=== PATIENT | male | born 1930 | race Asian ===

== ENCOUNTER 2019-10-09 23:35 | Inpatient (IN) | payer OTHER ==
--- NOTE | 2019-10-10 01:11 | PDOC ---
History of Present Illness - General Chief Complaint: Blood Sugar Problem Stated Complaint: HYPOGLYCEMIA/ASHMA Time Seen by Provider: 10/10/19 01:00 - History of Present Illness Initial Comments: HPI: 89yo F with PMH of DM, HTN, kidney disease, glaucoma presenting with hypoglycemia. Patient's son is at the bedside providing collateral history. Patient was sleeping on the couch and was unarousable. EMS came and found his glucose to be 51. Patient was given an amp of D10. Currently at his baseline. Compliant with glimepiride which he takes every morning. Does not believe he took more than prescribed. Was given a ventolin inhaler about one week ago for shortness of breath. Currently at his neurologic baseline. No fever, chills, or chest pain. PCP: Dr. Rosales ([facility]) ROS: Constitutional: no fever, no chills HEENT: no throat pain, no dysphagia Cardiovascular: no chest pain, no palpitations Respiratory: no cough, +shortness of breath Gastrointestinal: no abdominal pain, no nausea Genitourinary: no dysuria, no hematuria Musculoskeletal: no myalgia, no arthralgia Skin: no rash, no itching Neurologic: no headache, no weakness Psych: no agitation, no anxiety PE: General: Awake, alert, and fully oriented, in no acute distress Head: No signs of trauma Eyes: EOMI, sclera anicteric ENT: Moist mucus membranes Neck: Normal ROM, supple Lungs: Poor air movement with wheezes Cardio: Regular rhythm, S1 and S2 present Abdomen: Soft, nontender. No guarding, no rebound, no masses Extremities: Normal range of motion, Distal pulses present SKIN: Warm, Dry, normal turgor Neurologic: Cranial nerves II through XII intact. Normal speech ED Course/MDM: DDX includes but not limited to metabolic derangement, anemia, brain bleed, intoxication, seizure Labs, EKG, UA Head CT 10/10/19 01:11 EKG: rate 63, QTc 470, sinus, RBBB, no prior EKGs available for comparison CBC WBC 6.6 K/mm3 (4.0-10.0) 10/10/19 02:10 RBC 3.83 M/mm3 (4.00-5.60) L 10/10/19 02:10 Hgb 11.5 GM/dL (11.7-16.9) L 10/10/19 02:10 Hct 34.3 % (35.4-49) L 10/10/19 02:10 MCV 89.6 fl (80-96) 10/10/19 02:10 MCH 30.0 pg (25.7-33.7) 10/10/19 02:10 MCHC 33.5 g/dl (32.0-35.9) 10/10/19 02:10 RDW 13.5 % (11.9-15.9) 10/10/19 02:10 Plt Count 207 K/MM3 (134-434) 10/10/19 02:10 MPV 7.7 fl (7.5-11.1) 10/10/19 02:10 Absolute Neuts (auto) 5.1 K/mm3 (1.5-8.0) 10/10/19 02:10 Neutrophils % 78.0 % (42.8-82.8) 10/10/19 02:10 Lymphocytes % 12.9 % (8-40) 10/10/19 02:10 Monocytes % 3.8 % (3.8-10.2) 10/10/19 02:10 Eosinophils % 4.4 % (0-4.5) 10/10/19 02:10 Basophils % 0.9 % (0-2.0) 10/10/19 02:10 Nucleated RBC % 0 % (0-0) 10/10/19 02:10 No leukocytosis CMP Sodium 130 mmol/L (136-145) L 10/10/19 02:10 Potassium 4.8 mmol/L (3.5-5.1) 10/10/19 02:10 Chloride 100 mmol/L (98-107) 10/10/19 02:10 Carbon Dioxide 20 mmol/L (21-32) L 10/10/19 02:10 Anion Gap 9 MMOL/L (8-16) 10/10/19 02:10 BUN 38.2 mg/dL (7-18) H 10/10/19 02:10 Creatinine 2.2 mg/dL (0.55-1.3) H 10/10/19 02:10 Est GFR (CKD-EPI)AfAm 30.10 10/10/19 02:10 Est GFR (CKD-EPI)NonAf 25.97 10/10/19 02:10 POC Glucometer 125 UNITS (80-120) 10/10/19 00:10 Random Glucose 117 mg/dL (74-106) H 10/10/19 02:10 Calcium 8.1 mg/dL (8.5-10.1) L 10/10/19 02:10 Total Bilirubin 0.4 mg/dL (0.2-1) 10/10/19 02:10 AST 39 U/L (15-37) H 10/10/19 02:10 ALT 38 U/L (13-61) 10/10/19 02:10 Alkaline Phosphatase 107 U/L (45-117) 10/10/19 02:10 Creatine Kinase 208 U/L (26-308) 10/10/19 02:10 Creatine Kinase Index 2.0 % (0.0-5.0) 10/10/19 02:10 CK-MB (CK-2) 4.3 ng/mL (0.5-3.6) H 10/10/19 02:10 Troponin I < 0.02 ng/ml (0.00-0.05) 10/10/19 02:10 Total Protein 6.1 g/dl (6.4-8.2) L 10/10/19 02:10 Albumin 3.5 g/dl (3.4-5.0) 10/10/19 02:10 Electrolytes unremarkable Cr elevated, unknownbaseline Tpn undetctable CT head as read by imaging engineering consultant: "COMPARISON: None. FINDINGS: The ventricular system is midline and nondilated. Mild cortical atrophy is noted. 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 There is no bleed, mass, extra-axial fluid collection or mass effect. No skull fracture or skull lesion is identified. The visualized paranasal sinuses and mastoid air cells are clear other than mucosal thickening in the maxillary sinuses.. IMPRESSION: No evidence of acute pathology" 10/10/19 05:17 Mary Hawley for asthma exacerbation Plan for admission 10/10/19 05:[address] Dial who accepted patient for admission under Dr. Hurt 10/10/19 07:28 Past History - Past Medical History Allergies/Adverse Reactions: Allergies Allergy/AdvReac Type Severity Reaction Status Date / Time No Known Allergies Allergy Verified 10/10/19 02:22 Home Medications: Ambulatory Orders Albuterol Sulfate Inhaler - [Ventolin Hfa Inhaler -] 2 inh PO Q6H 10/10/19 Amlodipine Besylate 10 mg PO DAILY 10/10/19 Atorvastatin Ca [Lipitor] 40 mg PO HS 10/10/19 Celecoxib 200 mg PO BID 10/10/19 Clopidogrel Bisulfate [Plavix -] 75 mg PO DAILY 10/10/19 Glimepiride [Amaryl -] 2 mg PO DAILY 10/10/19 Tamsulosin HCl 0.4 mg PO DAILY 10/10/19 Cardiac Disorders: Yes COPD: Yes Diabetes: Yes HTN: Yes Hypercholesterolemia: Yes - Immunization History Td Vaccination: Yes TDAP Vaccination: Yes Immunization Up to Date: No - Psycho Social/Smoking Cessation Hx Smoking History: Never smoked Have you smoked in the past 12 months: No Information on smoking cessation initiated: No Hx Alcohol Use: Yes (occasional) Drug/Substance Use Hx: No *Physical Exam - Vital Signs Last Vital Signs Temp Pulse Resp BP Pulse Ox 97.5 F L 58 L 20 186/70 H 99 10/10/19 00:22 10/10/19 00:22 10/10/19 00:22 10/10/19 00:22 10/10/19 00:22 ED Treatment Course - LABORATORY CBC & Chemistry Diagram: 10/10/19 02:10 10/10/19 02:10 - ADDITIONAL ORDERS Additional order review: Laboratory Results 10/10/19 00:10 POC Glucometer 125 10/10/19 00:10 POC Glucometer 125 Discharge - Discharge Information Problems reviewed: Yes Clinical Impression/Diagnosis: Hypoglycemia, Unresponsive episode Asthma exacerbation Qualifiers: Asthma severity: mild Asthma persistence: unspecified Qualified Code(s): J45.901 - Unspecified asthma with (acute) exacerbation Condition: Guarded - Admission Yes - Follow up/Referral Referrals: ON STAFF,NOT [Primary Care Provider] - - Patient Discharge Instructions - Post Discharge Activity
--- NOTE | 2019-10-10 01:35 | PDOC ---
Attending Attestation - Resident Resident Name: Beatrice Nair - ED Attending Attestation I have performed the following: I have examined & evaluated the patient, The case was reviewed & discussed with the resident, I agree w/resident's findings & plan - HPI HPI: 10/10/19 01:33 Pt comes with "passing out" on his couch in that he fell asleep and he was un- arousable when family tried to wake him - Physicial Exam PE: 10/10/19 01:33 Wheezing lungs bilaterally neuro exam normal blood sugar normal here afebrile [id number] - Medical Decision Making 10/14/19 20:47 Pt will be admitted to tele Pt appears well at this time. His blood sugar was low, but nothing like this ever happened to him 10/14/19 20:49 Labs so far normal. We are awaiting beds up stairs. 10/14/19 20:[address] normal
[2019-10-10] MEDS ORDERED: ALBUTEROL SO4 2.5/IPRATROPIUM 0.5 INH SOL 3 ML VIAL.NEB. NEB ONE ×5 (01:52→13:26)
[2019-10-10 02:27] LABS: BASO % 0.9 % (0-2.0); EOS % 4.4 % (0-4.5); HEMATOCRIT 34.3 % (35.4-49); HEMOGLOBIN 11.5 GM/dL (11.7-16.9); LYMPH % 12.9 % (8-40); MCHC 33.5 g/dl (32.0-35.9); MEAN CELL VOLUME 89.6 fl (80-96); MEAN PLT VOLUME 7.7 fl (7.5-11.1); MONO % 3.8 % (3.8-10.2); PLATELET COUNT 207 K/MM3 (134-434); RBC 3.83 M/mm3 (4.00-5.60); RDW 13.5 % (11.9-15.9); WHITE BLOOD COUNT 6.6 K/mm3 (4.0-10.0)
[2019-10-10 03:04] LABS: ALBUMIN 3.5 g/dl (3.4-5.0); ALK PHOS 107 U/L (45-117); ANION GAP 9 MMOL/L (8-16); BILIRUBIN,TOTAL 0.4 mg/dL (0.2-1); BLOOD UREA NITROGEN 38.2 mg/dL (7-18); CALCIUM 8.1 mg/dL (8.5-10.1); CHLORIDE 100 mmol/L (98-107); CO2 20 mmol/L (21-32); CREATININE 2.2 mg/dL (0.55-1.3); GLUCOSE,RANDOM 117 mg/dL (74-106); POTASSIUM 4.8 mmol/L (3.5-5.1); SGOT/AST 39 U/L (15-37); SGPT/ALT 38 U/L (13-61); SODIUM 130 mmol/L (136-145); TOT PROT 6.1 g/dl (6.4-8.2)
[2019-10-10 04:34] LABS: EPI CELLS 2.4 /HPF (0-5/HPF); HYALINE CASTS 12 /lpf (0-8); PH,URINE 5.5 (5.0-8.0); URINE APPEARANCE CLEAR; URINE BACTERIA 3.3 /hpf (NEGATIVE); URINE BILIRUBIN NEGATIVE (NEGATIVE); URINE COLOR YELLOW; URINE GLUCOSE (UA) NEGATIVE (NEGATIVE); URINE KETONE TRACE (NEGATIVE); URINE LEUK ESTERASE NEGATIVE (NEGATIVE); URINE NITRITE NEGATIVE (NEGATIVE); URINE PROTEIN 4+ (NEGATIVE); URINE RBC 3 /hpf (0-4); URINE WBC 1 /hpf (0-5)
[2019-10-10] MEDS ORDERED: SODIUM CHLORIDE 0.9% 500 ML INFUS.BAG IV ONE (04:39)
[2019-10-10] MEDS ORDERED: DEXAMETHASONE SOD PHOSPHATE 10 MG/1 ML VIAL IVPUSH ONE (05:46)
[2019-10-10] MEDS ORDERED: DEXAMETHASONE SOD PHOSPHATE 10 MG/1 ML VIAL ONE (05:48)
--- NOTE | 2019-10-10 07:36 | PDOC ---
*Physical Exam - Vital Signs Last Vital Signs Temp Pulse Resp BP Pulse Ox 97.5 F L 64 20 172/71 H 100 10/10/19 00:22 10/10/19 06:15 10/10/19 06:15 10/10/19 06:15 10/10/19 06:15 - Physical Exam 10/10/19 07:35 Patient to be admitted for hypoglycemia, SOB. On sulfonylurea at home. Repeat FSBG at this time is 43, patient states feels fine, family states mentating normally per baseline. Given cranberry juice and sandwich. ED Treatment Course - LABORATORY CBC & Chemistry Diagram: 10/11/19 07:20 10/10/19 02:10 - ADDITIONAL ORDERS Additional order review: Laboratory Results 10/10/19 10/10/19 10/10/19 07:27 04:20 02:10 Sodium 130 L Potassium 4.8 Chloride 100 Carbon Dioxide 20 L Anion Gap 9 BUN 38.2 H Creatinine 2.2 H Est GFR (CKD-EPI)AfAm 30.10 Est GFR (CKD-EPI)NonAf 25.97 POC Glucometer 43 Random Glucose 117 H Calcium 8.1 L Total Bilirubin 0.4 AST 39 H ALT 38 Alkaline Phosphatase 107 Creatine Kinase 208 Creatine Kinase Index 2.0 CK-MB (CK-2) 4.3 H Troponin I < 0.02 Total Protein 6.1 L Albumin 3.5 Urine Color Yellow Urine Appearance Clear Urine pH 5.5 Ur Specific [place] 1.022 Urine Protein 4+ H Urine Glucose (UA) Negative Urine Ketones Trace H Urine Blood 1+ H Urine Nitrite Negative Urine Bilirubin Negative Urine Urobilinogen 1.0 Ur Leukocyte Esterase Negative Urine WBC (Auto) 1 Urine RBC (Auto) 3 Urine Casts (Auto) 12 U Epithel Cells (Auto) 2.4 Urine Bacteria (Auto) 3.3 10/10/19 00:10 Sodium Potassium Chloride Carbon Dioxide Anion Gap BUN Creatinine Est GFR (CKD-EPI)AfAm Est GFR (CKD-EPI)NonAf POC Glucometer 125 Random Glucose Calcium Total Bilirubin AST ALT Alkaline Phosphatase Creatine Kinase Creatine Kinase Index CK-MB (CK-2) Troponin I Total Protein Albumin Urine Color Urine Appearance Urine pH Ur Specific [place] Urine Protein Urine Glucose (UA) Urine Ketones Urine Blood Urine Nitrite Urine Bilirubin Urine Urobilinogen Ur Leukocyte Esterase Urine WBC (Auto) Urine RBC (Auto) Urine Casts (Auto) U Epithel Cells (Auto) Urine Bacteria (Auto) 10/10/19 10/10/19 10/10/19 07:27 02:10 00:10 RBC 3.83 L MCV 89.6 MCHC 33.5 RDW 13.5 MPV 7.7 Neutrophils % 78.0 Lymphocytes % 12.9 Monocytes % 3.8 Eosinophils % 4.4 Basophils % 0.9 POC Glucometer 43 125 - Medications Given in the ED: ED Medications Discontinued Medications Generic Name Dose Route Start Last Admin Trade Name Freq PRN Reason Stop Dose Admin Albuterol/Ipratropium 1 amp 10/10/19 01:52 10/10/19 02:22 Duoneb - NEB 10/10/19 01:53 1 amp ONCE ONE Administration Albuterol/Ipratropium 2 amp 10/10/19 05:46 10/10/19 05:56 Duoneb - NEB 10/10/19 05:47 2 amp ONCE ONE Administration Dexamethasone Sodium Phosphate 10 mg 10/10/19 05:46 10/10/19 05:56 Decadron Injection - IVPUSH 10/10/19 05:47 10 mg ONCE ONE Administration Sodium Chloride 1,000 ml 10/10/19 04:39 10/10/19 04:45 Normal Saline - IV 10/10/19 04:40 1,000 ml ONCE ONE Administration Discharge - Discharge Information Problems reviewed: Yes Clinical Impression/Diagnosis: Hypoglycemia, Unresponsive episode Asthma exacerbation Qualifiers: Asthma severity: mild Asthma persistence: unspecified Qualified Code(s): J45.901 - Unspecified asthma with (acute) exacerbation Condition: Guarded - Follow up/Referral - Patient Discharge Instructions - Post Discharge Activity
[2019-10-10] MEDS ORDERED: ALBUTEROL SO4 2.5/IPRATROPIUM 0.5 INH SOL 3 ML VIAL.NEB. NEB PRN (08:26)
[2019-10-10] MEDS ORDERED: amLODIPine BESYLATE 5 MG TABLET (FP) ONE (08:54)
[2019-10-10] MEDS ORDERED: CLOPIDOGREL BISULFATE 75 MG TABLET (FP) ONE (08:55)
[2019-10-10] MEDS ORDERED: HEPARIN NA (PORCINE) 5,000 UNITS/ML 1ML VIAL ONE (08:55)
[2019-10-10] MEDS ORDERED: TAMSULOSIN HCL 0.4 MG CAP ONE (08:55)
--- NOTE | 2019-10-10 08:58 | EKG ---
Test Reason : Blood Pressure : / mmHG Vent. Rate : 063 BPM Atrial Rate : 063 BPM P-R Int : 370 ms QRS Dur : 134 ms QT Int : 460 ms P-R-T Axes : 113 088 055 degrees QTc Int : 470 ms SINUS RHYTHM WITH 1ST DEGREE A-V BLOCK RIGHT BUNDLE BRANCH BLOCK ABNORMAL ECG NO PREVIOUS ECGS AVAILABLE Confirmed by Tia Freeman ([id number]) on 10/10/2019 8:58:00 AM Referred By: Confirmed By:Tia Freeman
[2019-10-10] MEDS: TAMSULOSIN HCL 0.4 MG CAP PO SCH (09:01)
[2019-10-10] MEDS: amLODIPine BESYLATE 10 MG TABLET (FP) PO SCH (09:01)
[2019-10-10] MEDS: CLOPIDOGREL BISULFATE 75 MG TABLET (FP) PO SCH (09:01)
[2019-10-10] MEDS: HEPARIN NA (PORCINE) 5,000 UNITS/ML 1ML VIAL SQ SCH ×2 (09:53→18:35)
[2019-10-10] MEDS ORDERED: ALBUTEROL SO4 0.083% IH SOL 2.5 MG/3 ML VIAL.NEB. NEB PRN (10:30)
--- NOTE | 2019-10-10 11:00 | HP ---
CHIEF COMPLAINT: Shortness of breath, unresponsiveness PCP: Dr. Renzo Rosales ([phone]) Nephro: Dr. Feldman ([phone]) HISTORY OF PRESENT ILLNESS: While watching television, patient was noted to be drowsy and later on unresponsive by his children. They called EMS, and on arrival was found to have blood glucose of 51 to which he was given 1 amp of D10. Patient subsequently gained consciousness and upon arrival at the ED, mental status was back to his baseline and glucose was 125. PAtient denies any previous episodes of hypoglycemia, and has been on glimepiride for years. Patient also reports shortness of breath and wheezing in the past week, and was given albuterol inhaler by his PCP which provided minimal relief. Because of SOB, patient admitted to decreased oral intake in the last few days. He denies any recent illness, denies fevers, chills, headache, dizziness, chest pain, cough, colds. During his visit to his PCP last week, he also reported that he was told to have an abnormal kidney function, to which his Losartan was discontinued and Amlodipine dose increased for HTN. ER course was notable for: (1)Head CT - no acute pathology; CXR - some congestive changes (2)Na 130, BUN/Cr 38.2/2.2, UA 4+JASBIR (3) Recent Travel: Goes home to the [facility] frequently PAST MEDICAL HISTORY: Type 2 DM HTN PAST SURGICAL HISTORY: Right knee replacement Social History: Smoking: previous smoker, quit in 1985 Alcohol: occasional etoh use Drugs: denies illicit drug use Lives with family at home Allergies No Known Allergies Allergy (Verified 10/10/19 02:22) HOME MEDICATIONS: Home Medications Medication Instructions Recorded Albuterol Sulfate Inhaler - 2 inh PO Q6H 10/10/19 [Ventolin Hfa Inhaler -] Amlodipine Besylate 10 mg PO DAILY 10/10/19 Atorvastatin Ca [Lipitor] 40 mg PO HS 10/10/19 Celecoxib 200 mg PO BID 10/10/19 Clopidogrel Bisulfate [Plavix -] 75 mg PO DAILY 10/10/19 Glimepiride [Amaryl -] 2 mg PO DAILY 10/10/19 Tamsulosin HCl 0.4 mg PO DAILY 10/10/19 REVIEW OF SYSTEMS CONSTITUTIONAL: loss of appetite Absent: fever, chills, diaphoresis, generalized weakness, malaise,weight change HEENT: Absent: rhinorrhea, nasal congestion, throat pain, throat swelling, difficulty swallowing, mouth swelling, ear pain, eye pain, visual changes CARDIOVASCULAR: Absent: chest pain, syncope, palpitations, irregular heart rate, lightheadedness , peripheral edema RESPIRATORY: shortness of breath, wheezing Absent: cough, dyspnea with exertion, orthopnea, stridor, hemoptysis GASTROINTESTINAL: Absent: abdominal pain, abdominal distension, nausea, vomiting, diarrhea, constipation, melena, hematochezia GENITOURINARY: Absent: dysuria, frequency, urgency, hesitancy, hematuria, flank pain, genital pain MUSCULOSKELETAL: Absent: myalgia, arthralgia, joint swelling, back pain, neck pain SKIN: Absent: rash, itching, pallor HEMATOLOGIC/IMMUNOLOGIC: Absent: easy bleeding, easy bruising, lymphadenopathy, frequent infections ENDOCRINE: Absent: unexplained weight gain, unexplained weight loss, heat intolerance, cold intolerance NEUROLOGIC: Absent: headache, focal weakness or paresthesias, dizziness, unsteady gait, seizure, mental status changes, bladder or bowel incontinence PSYCHIATRIC: Absent: anxiety, depression, suicidal or homicidal ideation, hallucinations. PHYSICAL EXAMINATION Vital Signs - 24 hr 10/10/19 10/10/19 00:22 06:15 Temperature 97.5 F L Pulse Rate 58 L Pulse Rate [ 64 Apical] Respiratory 20 20 Rate Blood Pressure 186/70 H Blood Pressure 172/71 H [Left Arm] O2 Sat by Pulse 99 100 Oximetry (%) GENERAL: Awake, alert, and fully oriented, in mild respiratory distress. HEAD: Normal with no signs of trauma. EYES: PERRLA, EOMI, sclera anicteric, conjunctiva clear. EARS, NOSE, THROAT: Dry mucous membranes NECK: Normal range of motion, supple without lymphadenopathy, JVD, or masses. LUNGS: Good air entry, Rhonchi and crackles on bilateral bases HEART: Regular rate and rhythm, normal S1 and S2 without murmur, rub or gallop. ABDOMEN: Soft, nontender, not distended, normoactive bowel sounds. MUSCULOSKELETAL: Normal range of motion at all joints. No CVA tenderness. UPPER EXTREMITIES: 2+ pulses, warm, well-perfused. No peripheral edema. LOWER EXTREMITIES: 2+ pulses, warm, well-perfused. No peripheral edema. NEUROLOGICAL: Cranial nerves II-XII intact. Normal speech. Normal gait. PSYCHIATRIC: Cooperative. Good eye contact. Appropriate mood and affect. SKIN: Warm, dry, normal turgor, no rashes or lesions noted. Laboratory Results - last 24 hr 10/10/19 10/10/19 10/10/19 00:10 02:10 02:10 WBC 6.6 RBC 3.83 L Hgb 11.5 L Hct 34.3 L MCV 89.6 MCH 30.0 MCHC 33.5 RDW 13.5 Plt Count 207 MPV 7.7 Absolute Neuts (auto) 5.1 Neutrophils % 78.0 Lymphocytes % 12.9 Monocytes % 3.8 Eosinophils % 4.4 Basophils % 0.9 Nucleated RBC % 0 Sodium 130 L Potassium 4.8 Chloride 100 Carbon Dioxide 20 L Anion Gap 9 BUN 38.2 H Creatinine 2.2 H Est GFR (CKD-EPI)AfAm 30.10 Est GFR (CKD-EPI)NonAf 25.97 POC Glucometer 125 Random Glucose 117 H Calcium 8.1 L Total Bilirubin 0.4 AST 39 H ALT 38 Alkaline Phosphatase 107 Creatine Kinase 208 Creatine Kinase Index 2.0 CK-MB (CK-2) 4.3 H Troponin I < 0.02 Total Protein 6.1 L Albumin 3.5 Urine Color Urine Appearance Urine pH Ur Specific [place] Urine Protein Urine Glucose (UA) Urine Ketones Urine Blood Urine Nitrite Urine Bilirubin Urine Urobilinogen Ur Leukocyte Esterase Urine WBC (Auto) Urine RBC (Auto) Urine Casts (Auto) U Epithel Cells (Auto) Urine Bacteria (Auto) 10/10/19 10/10/19 10/10/19 04:20 07:27 08:11 WBC RBC Hgb Hct MCV MCH MCHC RDW Plt Count MPV Absolute Neuts (auto) Neutrophils % Lymphocytes % Monocytes % Eosinophils % Basophils % Nucleated RBC % Sodium Potassium Chloride Carbon Dioxide Anion Gap BUN Creatinine Est GFR (CKD-EPI)AfAm Est GFR (CKD-EPI)NonAf POC Glucometer 43 112 Random Glucose Calcium Total Bilirubin AST ALT Alkaline Phosphatase Creatine Kinase Creatine Kinase Index CK-MB (CK-2) Troponin I Total Protein Albumin Urine Color Yellow Urine Appearance Clear Urine pH 5.5 Ur Specific [place] 1.022 Urine Protein 4+ H Urine Glucose (UA) Negative Urine Ketones Trace H Urine Blood 1+ H Urine Nitrite Negative Urine Bilirubin Negative Urine Urobilinogen 1.0 Ur Leukocyte Esterase Negative Urine WBC (Auto) 1 Urine RBC (Auto) 3 Urine Casts (Auto) 12 U Epithel Cells (Auto) 2.4 Urine Bacteria (Auto) 3.3 ASSESSMENT/PLAN: Patient is an 89 year old male with past medical history of Type 2 DM, HTN, ?CKD , was BIBEMS after he was found to be unresponsive, noted to be hypoglycemic. Also reports SOB for 1 week. #Shortness of breath -may be 2/2 asthma/COPD exacerbation vs volume overload -will give Duoneb treatment and albuterol prn -will start PRednisone 30mg daily -echo #AMS likely 2/2 hypoglycemia -mental status currently back to baseline -hypoglycemia likely 2/2 decreased excretion of Glimepiride given patient's age and decreased kidney function -another episode of hypoglycemia this am, improved with orange juice -BGM q4h for now -encourage increased oral intake #Hyponatremia -likely 2/2 poor po intake -Serum/Urine osm, urine Na #FERNIE on ?CKD -UA +4CHON, will orderPrt:grounds manager ratio -FeNa -As per PCP (Dr. Rosales) and Hyperbaric Welder Diver (Dr. Feldman), recent Cr was 2.1 -renal US done at the office consistent with chronic medical renal disease -Losartan recently discontinued by pt's record press supervisor -Avoid nephrotoxic agents such as NSAIDs, aminoglycosides, contrast agents. #HTN -Continue Amlodipine 10mg daily -hold Losartan, recently discontinued by record press supervisor due to FERNIE/CKD -Will give Hydralazine 25mg bid if bp continues to be elevated #DM -currently hypoglycemic -hold all DM meds -BGM q4h for now -encourage PO intake #Elevated TSH -as per pt's outpatient records, TSH 8.78 -will order FT3 and FT4 for further evaluation #FEN -Not in any standing fluids -hyponatremia, routine bmp monitoring -Diabetic/sodium restricted diet #Prophylaxis -Heparin 5000u sq tid #Disposition -full code -admit to med surg Visit type - Emergency Visit Emergency Visit: Yes ED Registration Date: 10/10/19 Care time: The patient presented to the Emergency Department on the above date and was hospitalized for further evaluation of their emergent condition. - New Patient This patient is new to me today: Yes Date on this admission: 10/10/19 - Critical Care Critical Care patient: No ATTENDING PHYSICIAN STATEMENT I saw and evaluated the patient. I reviewed the resident's note and discussed the case with the resident. I agree with the resident's findings and plan as documented. SUBJECTIVE: OBJECTIVE: ASSESSMENT AND PLAN:
[2019-10-10] MEDS: ALBUTEROL SO4 2.5/IPRATROPIUM 0.5 INH SOL 3 ML VIAL.NEB. NEB SCH ×3 (13:25→20:29)
--- NOTE | 2019-10-10 14:08 | PN ---
Teaching Attending Note Name of Resident: Niru Cortes ATTENDING PHYSICIAN STATEMENT I saw and evaluated the patient. I reviewed the resident's note and discussed the case with the resident. I agree with the resident's findings and plan as documented. SUBJECTIVE: CC: unresponsiveness. HPI: Rachelle 89 y/o man with h/o DM, recent diagnosis of CKD , CAD , HTN, former smoker who presented with unresponsiveness. he had low appetite fro 3 days and has not been eating well. continued to take his glemiperide. his dose of glemiperide was not changed after diagnosis of renal failure. last night he was found unresponsive by family. IN ER he was found to be hypoglycemic . He reports SOB inbed and with exertion for a while. No cough, no recent travel of fever or sick contact. Not formally diagnosed with COPD but he sees a lung doctor who gives him inhalers. he was referred to a weapons and tactics instructor ( Dr. Moralez in [facility] [phone]) due to labs indicating cr 2.1 in 08/18. a week ago, he saw his PCP ( dr. Rosales [phone]) who did blood work and stopped his losartan. no more info available. In ER , he was given a Neb treatment in ER due to wheezing. he feels better now. family thinks patient is at base line mental status now OBJECTIVE: NAD, awake, aleert , cooperative . dry MM, nl oropharynx. b/l archus senalis CV: RRR, no MRG. neck vein bulge on R Lungs : CTAB. minimal R base crackles Ext: no erythema. trace edema . no fungal infection Abd: soft, NT, ND , NL BS neuro: EOMI, round equal pupils, no facial droop. EOMI. tongue at mid line Strength 5/5 in upepr and lower extremities proximally and distally ASSESSMENT AND PLAN: Rachelle 89 y/o man with h/o DM, recent diagnosis of CKD , CAD , HTN, former smoker who presented with unresponsiveness. he was found to have hypoglycemia 1- Hypoglycemia : due to poor po intake in setting of glemiperide use and impared renal function - monitor BGMS - sugar improved. - HOld glemiperide 2- SOB: likely due to COPD . was wheezing in field per EMS report. repsonded to Nebs in ER. - will cont Nebs and inhalers - will reassess later, if cont to wheeze will start prednisone for mild acute COPD exacerbation - CXray reviewed. doubt any congestion . get echo 3- h/o CAD: f/u with his rf design engineer 4- CKD: 08/18 cr was 2.1 per blood work from [facility]. now 2.2 - will get records from his weapons and tactics instructor , Dr. Moralez in [facility] [phone] - will ask PCP ( dr. Rosaels [phone]) about reason for dc losartan - renal US 4- HTN urgency : resume norvasc. repeat BP. DVT Px : SQ heparin
[2019-10-10 15:49] LABS: MAGNESIUM 2.3 mg/dL (1.8-2.4)
[2019-10-10] MEDS ORDERED: predniSONE 20 MG TABLET (UD) ONE (17:12)
[2019-10-10] MEDS: hydrALAZINE HCL 25 MG TABLET (FP) PO SCH ×2 (17:23→21:16)
[2019-10-10] MEDS: predniSONE 10 MG TABLET (UD) PO SCH (17:24)
[2019-10-10] MEDS: INSULIN SLIDING SCALE (NOVOLOG) 1 VIAL SQ SCH ×2 (18:18→21:16)
[2019-10-10] MEDS: ATORVASTATIN CA 40 MG TABLET (FP) PO SCH (21:16)
[2019-10-10] MEDS ORDERED: PT OWN MED DRAWER 7, Y5N ONE (21:32)
[2019-10-10 22:25] VITALS: BMI 25.6
[2019-10-11] MEDS: HEPARIN NA (PORCINE) 5,000 UNITS/ML 1ML VIAL SQ SCH ×3 (01:48→17:15)
[2019-10-11] MEDS: INSULIN SLIDING SCALE (NOVOLOG) 1 VIAL SQ SCH ×4 (06:32→21:45)
[2019-10-11 08:02] LABS: HEMATOCRIT 30.5 % (35.4-49); HEMOGLOBIN 10.2 GM/dL (11.7-16.9); MCH 30.3 pg (25.7-33.7); MCHC 33.5 g/dl (32.0-35.9); MEAN CELL VOLUME 90.3 fl (80-96); MEAN PLT VOLUME 8.2 fl (7.5-11.1); MONO % 4.1 % (3.8-10.2); NEUT % 84.9 % (42.8-82.8); PLATELET COUNT 189 K/MM3 (134-434); RBC 3.37 M/mm3 (4.00-5.60); RDW 14.1 % (11.9-15.9); WHITE BLOOD COUNT 7.3 K/mm3 (4.0-10.0)
[2019-10-11 08:40] LABS: BLOOD UREA NITROGEN 47.5 mg/dL (7-18); CALCIUM 8.5 mg/dL (8.5-10.1); CREATININE 2.5 mg/dL (0.55-1.3); MAGNESIUM 2.4 mg/dL (1.8-2.4); POTASSIUM 4.8 mmol/L (3.5-5.1)
[2019-10-11] MEDS: ALBUTEROL SO4 2.5/IPRATROPIUM 0.5 INH SOL 3 ML VIAL.NEB. NEB SCH ×4 (08:45→20:20)
[2019-10-11] MEDS: hydrALAZINE HCL 25 MG TABLET (FP) PO SCH ×2 (09:07→21:45)
[2019-10-11] MEDS: TAMSULOSIN HCL 0.4 MG CAP PO SCH (09:07)
[2019-10-11] MEDS: CLOPIDOGREL BISULFATE 75 MG TABLET (FP) PO SCH (09:07)
[2019-10-11] MEDS: amLODIPine BESYLATE 10 MG TABLET (FP) PO SCH (09:12)
[2019-10-11] MEDS: predniSONE 10 MG TABLET (UD) PO SCH (10:22)
[2019-10-11] MEDS ORDERED: PT OWN MED DRAWER 7, Y5N ONE (10:49)
[2019-10-11] MEDS ORDERED: SODIUM CHLORIDE 1,000 ML IV SCH ×2 (12:15→19:12)
--- NOTE | 2019-10-11 13:37 | ECHO ---
Version: 1 Name: JENNIFER NORIEGA Exam: Adult Echocardiogram Study Date: 10/11/2019, 11:15 AM Age: 89 Years MMode/2D Measurements & Calculations LVIDd: 4.3 cm LVIDs: 2.18 cm LVPWd: 1.00 cm ACS: 1.79 cm Ao root diam: 3.3 cm LA dimension: 4.8 cm Doppler Measurements & Calculations MV E max niles: 119.9 cm/sec Med E/e': 13.7 MV A max niles: 95.8 cm/sec Med Peak E' Niles: 8.8 cm/sec MV E/A: 1.25 Lat E/e': 13.8 Lat Peak E' Niles: 8.7 cm/sec MR max P.6 mmHg Ao max P.3 mmHg Ao V2 max: 144.4 cm/sec TR max niles: 313.7 cm/sec TR max P.4 mmHg Procedure The study was technically difficult with many images being suboptimal in quality. Left Ventricle The left ventricle is normal in size. There is mild concentric left ventricular hypertrophy. Left ve ntricular systolic function is normal. Ejection Fraction = 70%. Right Ventricle The right ventricle is mildly dilated. The right ventricular systolic function is mildly reduced. Atria The left atrium is mildly dilated. The right atrium is moderately dilated. Mitral Valve There is mild mitral annular calcification. There is mild to moderate mitral regurgitation. Tricuspid Valve The tricuspid valve is not well visualized. There is mild to moderate tricuspid regurgitation. Aortic Valve There is mild to moderate aortic sclerosis.;. Pulmonic Valve The pulmonic valve is not well visualized. Great Vessels The aortic root is normal size. Normal aortic arch, descending and ascending aorta. Pericardium/Pleura Trivial pericardial effusion. Summary Statements The study was technically difficult with many images being suboptimal in quality. The left ventricle is normal in size. There is mild concentric left ventricular hypertrophy. Left ventricular systolic function is normal. Ejection Fraction = 70%. The right ventricle is mildly dilated. The right ventricular systolic function is mildly reduced. The left atrium is mildly dilated. The right atrium is moderately dilated. There is mild mitral annular calcification. There is mild to moderate mitral regurgitation. The tricuspid valve is not well visualized. There is mild to moderate tricuspid regurgitation. There is mild to moderate aortic sclerosis.; The pulmonic valve is not well visualized. The aortic root is normal size. Normal aortic arch, descending and ascending aorta Trivial pericardial effusion. Ezequiel Lemus 10/11/2019, 1:37 PM Ordering Physician: BENJA ALLEN Performed By: Emmie Mistry
--- NOTE | 2019-10-11 17:55 | PN ---
Teaching Attending Note Name of Resident: Chary Cleveland ATTENDING PHYSICIAN STATEMENT I saw and evaluated the patient. I reviewed the resident's note and discussed the case with the resident. I agree with the resident's findings and plan as documented. SUBJECTIVE: no fever or chills. No CALDERA . no N/V . His breathing is better. no abd mis or diarrhea OBJECTIVE: NAD, awake, alert , cooperative . CV: RRR, no MRG. Lungs : CTAB. minimal scattered wheezes Ext: no erythema. trace edema ASSESSMENT AND PLAN: Pleasant 89 y/o man with h/o DM, recent diagnosis of CKD , CAD , HTN, former smoker who presented with unresponsiveness. he was found to have hypoglycemia 1- Hypoglycemia : due to poor po intake in setting of glemiperide use and impaired renal function - cont SSI , now elevated due to steroids - sugar improved. - HOld glemiperide. At dc consider decreasing dose 2- Acute COPD exacerbation : better on steroids - cont prednisone taper . day 2 on 30 mg . 3- h/o CAD: f/u with his chief warden 4- FERNIE on CKD:base line 2.1 .a cute increase is likely prerenal with diarrhea and poor po intake - start IVF 4- HTN urgency :resolved . -cont norvasc - Hydralazine was added here. cont possible dc tomorrow if renal function starts to improve
--- NOTE | 2019-10-11 19:00 | PN ---
Physical Exam: SUBJECTIVE: Patient seen and examined at bedside. pt states he is feeling short of breath and it is especially worsens when he exerts himself. 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 pt denies CP, palpitations OBJECTIVE: Vital Signs Period Temp Pulse Resp BP Sys/Denny Pulse Ox Last 24 Hr 97.7 F-98.1 F 61-71 20-22 144-174/60-78 92-98 GENERAL: The patient is awake, alert, and fully oriented, in no acute distress. HEAD: Normal with no signs of trauma. LUNGS: Breath sounds equal, rhonchi bilaterally, no accessory muscle use. HEART: Regular rate and rhythm, S1, S2 without murmur, rub or gallop. ABDOMEN: Soft, nontender, nondistended, normoactive bowel sounds, no guarding EXTREMITIES: 2+ pulses, warm, well-perfused, 2+ pitting edema b/l NEUROLOGICAL: Cranial nerves II through XII grossly intact. Normal speech PSYCH: Normal mood, normal affect. SKIN: Warm, dry, normal turgor, no rashes or lesions noted Laboratory Results 10/11/19 10/11/19 10/11/19 07:20 07:20 07:20 WBC 7.3 RBC 3.37 L Hgb 10.2 L Hct 30.5 L MCV 90.3 MCH 30.3 MCHC 33.5 RDW 14.1 Plt Count 189 MPV 8.2 Absolute Neuts (auto) 6.2 Neutrophils % 84.9 H Lymphocytes % 11.0 Monocytes % 4.1 Eosinophils % 0.0 D Basophils % 0.0 Nucleated RBC % 0 Sodium 131 L Potassium 4.8 Chloride 103 Carbon Dioxide 21 Anion Gap 7 L BUN 47.5 H Creatinine 2.5 H Est GFR (CKD-EPI)AfAm 25.79 Est GFR (CKD-EPI)NonAf 22.25 POC Glucometer Random Glucose 170 H Calcium 8.5 Phosphorus 4.0 Magnesium 2.4 TSH 1.71 Free T4 0.90 Urine Osmolality Current Medications Albuterol Sulfate (Ventolin 0.083% Nebulizer Soln -) 1 amp NEB Q4H PRN PRN Reason: SHORT OF BREATH/WHEEZING Albuterol/Ipratropium (Duoneb -) 1 amp NEB RQID [facility] Last Admin: 10/11/19 15:50 Dose: 1 amp Amlodipine Besylate (Norvasc -) 10 mg PO DAILY [facility] Last Admin: 10/11/19 09:12 Dose: 10 mg Atorvastatin Calcium (Lipitor -) 40 mg PO HS [facility] Last Admin: 10/10/19 21:16 Dose: 40 mg Clopidogrel Bisulfate (Plavix -) 75 mg PO DAILY [facility] Last Admin: 10/11/19 09:07 Dose: 75 mg Heparin Sodium (Porcine) (Heparin -) 5,000 unit SQ Q8H-IV [facility] Last Admin: 10/11/19 17:15 Dose: 5,000 unit Hydralazine HCl (Apresoline -) 25 mg PO BID [facility] Last Admin: 10/11/19 09:07 Dose: 25 mg Sodium Chloride (Normal Saline -) 1,000 mls @ 83 mls/hr IV ASDIR [facility] Last Admin: 10/11/19 14:31 Dose: 83 mls/hr Insulin Aspart (Novolog Vial Sliding Scale -) 1 vial SQ ACHS [facility]; Protocol Last Admin: 10/11/19 16:17 Dose: 6 units Prednisone (Deltasone -) 30 mg PO DAILY [facility] Last Admin: 10/11/19 10:22 Dose: 30 mg Tamsulosin HCl (Flomax -) 0.4 mg PO DAILY@0830 [facility] Last Admin: 10/11/19 09:07 Dose: 0.4 mg ASSESSMENT/PLAN: 89 yo M PMH of DM, CKD , CAD , HTN, BIBEMS for unresponsiveness associated with a hypoglycemic episode. on arrival to [facility] , BGM improved following D10 admin . pt found to have acute sob worsening x 2 weeks. pt also been having poor PO intake Hypoglycemia - likely 2/2 poor po intake while on glimeperide and new impaired renal fxn, BGM now improved - hold glimeperide, c/w ISS and BGM - will reconsider glimepiride dose at [place] with recommendations for close f/u with PMD Acute respiratory failure likely 2/2 Acute COPD exacerbation -c/w prednisone taper . 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 possible DC tomorrow Visit type - Emergency Visit Emergency Visit: No - New Patient This patient is new to me today: Yes Date on this admission: 10/11/19 - Critical Care Critical Care patient: No - Discharge Referral Referred to [facility] Med P.C.: No ATTENDING PHYSICIAN STATEMENT I saw and evaluated the patient. I reviewed the resident's note and discussed the case with the resident. I agree with the resident's findings and plan as documented. SUBJECTIVE: OBJECTIVE: ASSESSMENT AND PLAN:
[2019-10-11] MEDS: ATORVASTATIN CA 40 MG TABLET (FP) PO SCH (21:45)
[2019-10-12 00:27] LABS: URINE UREA NITROGEN 790 mg/dL (350-1000)
[2019-10-12] MEDS: HEPARIN NA (PORCINE) 5,000 UNITS/ML 1ML VIAL SQ SCH ×3 (01:20→17:21)
[2019-10-12] MEDS: INSULIN SLIDING SCALE (NOVOLOG) 1 VIAL SQ SCH ×3 (07:03→17:20)
[2019-10-12] MEDS: ALBUTEROL SO4 2.5/IPRATROPIUM 0.5 INH SOL 3 ML VIAL.NEB. NEB SCH ×3 (07:30→16:30)
[2019-10-12 09:08] LABS: BILIRUBIN,TOTAL 0.6 mg/dL (0.2-1); BLOOD UREA NITROGEN 47.9 mg/dL (7-18); CALCIUM 8.6 mg/dL (8.5-10.1); CREATININE 2.3 mg/dL (0.55-1.3); MAGNESIUM 2.4 mg/dL (1.8-2.4); PHOSPHOROUS 3.4 mg/dL (2.5-4.9); POTASSIUM 4.6 mmol/L (3.5-5.1); TOT PROT 5.6 g/dl (6.4-8.2)
[2019-10-12] MEDS ORDERED: PT OWN MED DRAWER 7, Y5N ONE ×2 (09:28→09:46)
[2019-10-12] MEDS: hydrALAZINE HCL 25 MG TABLET (FP) PO SCH (09:38)
[2019-10-12] MEDS: amLODIPine BESYLATE 10 MG TABLET (FP) PO SCH (09:38)
[2019-10-12] MEDS: TAMSULOSIN HCL 0.4 MG CAP PO SCH (09:38)
[2019-10-12] MEDS: CLOPIDOGREL BISULFATE 75 MG TABLET (FP) PO SCH (09:39)
--- NOTE | 2019-10-12 09:40 | PN ---
Teaching Attending Note Name of Resident: Chary Cleveland ATTENDING PHYSICIAN STATEMENT I saw and evaluated the patient. I reviewed the resident's note and discussed the case with the resident. I agree with the resident's findings and plan as documented. SUBJECTIVE: Patient is comfortable, wants to go home. OBJECTIVE: Vital Signs Temperature 97.9 F 10/12/19 06:00 Pulse Rate 72 10/12/19 06:00 Respiratory Rate 20 10/12/19 06:00 Blood Pressure 155/69 10/12/19 06:00 O2 Sat by Pulse Oximetry (%) 97 10/11/19 22:00 GENERAL: The patient is awake, alert, and fully oriented, in no acute distress. HEAD: Normal with no signs of trauma. EYES: PERRL, extraocular movements intact, sclera anicteric, conjunctiva clear. ENT: Ears normal, oropharynx clear without exudates, moist mucous membranes. NECK: Trachea midline, full range of motion, supple. LUNGS:decreased BS BL , no wheezes, no crackles, no accessory muscle use. HEART: Regular rate and rhythm, S1, S2 +, MILLI 2/6 ,no rub or gallop. ABDOMEN: Soft, NT,ND, normoactive bowel sounds, no guarding, no rebound, no hepatosplenomegaly, no masses. EXTREMITIES: 2+ pulses, warm, well-perfused, no edema. NEUROLOGICAL: Cranial nerves II through XII grossly intact. Normal speech. PSYCH: Normal mood, normal affect. SKIN: Warm, dry, normal turgor, no rashes or lesions noted CBCD WBC 7.3 K/mm3 (4.0-10.0) 10/11/19 07:20 RBC 3.37 M/mm3 (4.00-5.60) L 10/11/19 07:20 Hgb 10.2 GM/dL (11.7-16.9) L 10/11/19 07:20 Hct 30.5 % (35.4-49) L 10/11/19 07:20 MCV 90.3 fl (80-96) 10/11/19 07:20 MCHC 33.5 g/dl (32.0-35.9) 10/11/19 07:20 RDW 14.1 % (11.9-15.9) 10/11/19 07:20 Plt Count 189 K/MM3 (134-434) 10/11/19 07:20 MPV 8.2 fl (7.5-11.1) 10/11/19 07:20 CMP Sodium 136 mmol/L (136-145) 10/12/19 08:05 Potassium 4.6 mmol/L (3.5-5.1) 10/12/19 08:05 Chloride 107 mmol/L (98-107) 10/12/19 08:05 Carbon Dioxide 21 mmol/L (21-32) 10/12/19 08:05 Anion Gap 7 MMOL/L (8-16) L 10/12/19 08:05 BUN 47.9 mg/dL (7-18) H 10/12/19 08:05 Creatinine 2.3 mg/dL (0.55-1.3) H 10/12/19 08:05 Random Glucose 108 mg/dL (74-106) H 10/12/19 08:05 Calcium 8.6 mg/dL (8.5-10.1) 10/12/19 08:05 Total Bilirubin 0.6 mg/dL (0.2-1) 10/12/19 08:05 AST 33 U/L (15-37) 10/12/19 08:05 ALT 41 U/L (13-61) 10/12/19 08:05 Alkaline Phosphatase 91 U/L (45-117) 10/12/19 08:05 Total Protein 5.6 g/dl (6.4-8.2) L 10/12/19 08:05 Albumin 3.0 g/dl (3.4-5.0) L 10/12/19 08:05 CARDIAC ENZYMES Creatine Kinase 208 U/L (26-308) 10/10/19 02:10 Troponin I < 0.02 ng/ml (0.00-0.05) 10/10/19 02:10 Current Medications Generic Name Dose Route Start Last Admin Trade Name Freq PRN Reason Stop Dose Admin Albuterol Sulfate 1 amp 10/10/19 10:30 Ventolin 0.083% Nebulizer Soln - NEB Q4H PRN SHORT OF BREATH/WHEEZING Albuterol/Ipratropium 1 amp 10/10/19 12:00 10/11/19 20:20 Duoneb - NEB 1 amp RQID [facility] Administration Amlodipine Besylate 10 mg 10/10/19 10:00 10/12/19 09:38 Norvasc - PO 10 mg DAILY [facility] Administration Atorvastatin Calcium 40 mg 10/10/19 22:00 10/11/19 21:45 Lipitor - PO 40 mg HS [facility] Administration Clopidogrel Bisulfate 75 mg 10/10/19 10:00 10/12/19 09:39 Plavix - PO 75 mg DAILY [facility] Administration Heparin Sodium (Porcine) 5,000 unit 10/10/19 10:00 10/12/19 09:39 Heparin - SQ 5,000 unit Q8H-IV [facility] Administration Hydralazine HCl 25 mg 10/10/19 16:31 10/12/19 09:38 Apresoline - PO 25 mg BID [facility] Administration Insulin Aspart 1 vial 10/10/19 22:00 10/12/19 07:03 Novolog Vial Sliding Scale - SQ Not Given ACHS [facility] Protocol Prednisone 30 mg 10/10/19 16:45 10/11/19 10:22 Deltasone - PO 30 mg DAILY [facility] Administration Tamsulosin HCl 0.4 mg 10/10/19 08:45 10/12/19 09:38 Flomax - PO 0.4 mg DAILY@0830 [facility] Administration Home Medications Medication Instructions Recorded Albuterol Sulfate Inhaler - 2 inh PO Q6H 10/10/19 [Ventolin Hfa Inhaler -] Amlodipine Besylate 10 mg PO DAILY 10/10/19 Atorvastatin Ca [Lipitor] 40 mg PO HS 10/10/19 Celecoxib 200 mg PO BID 10/10/19 Clopidogrel Bisulfate [Plavix -] 75 mg PO DAILY 10/10/19 Glimepiride [Amaryl -] 2 mg PO DAILY 10/10/19 Tamsulosin HCl 0.4 mg PO DAILY 10/10/19 Home Medications Medication Instructions Recorded Amlodipine Besylate 10 mg PO DAILY 10/10/19 Atorvastatin Ca [Lipitor] 40 mg PO HS 10/10/19 Clopidogrel Bisulfate [Plavix -] 75 mg PO DAILY 10/10/19 Tamsulosin HCl 0.4 mg PO DAILY 10/10/19 Albuterol Sulfate Inhaler - 2 inh PO Q6H #1 inhaler 10/12/19 [Ventolin HFA Inhaler -] Glimepiride 1 mg PO DAILY #30 tablet 10/12/19 Labetalol HCl [Normodyne -] 100 mg PO BID 30 Days #60 tablet 10/12/19 Miscellaneous Medical Supply 1 each ASDIR #1 misc 10/12/19 [Outpatient Order] hydrALAZINE HCL [Apresoline -] 25 mg PO BID 30 Days #60 tablet 10/12/19 predniSONE [Deltasone -] 30 mg PO DAILY 5 Days #5 tablet 10/12/19 ASSESSMENT AND PLAN: Patient is a 89yom with PMHX of T2DM, with recent diagnosis of CKD , CAD , HTN, former smoker who presented with unresponsiveness ,and was found to have acute hypoglycemia. #Acute Hypoglycemia improved with will discharge the patient on 1mg of glemiperide use and impaired renal function # Acute COPD exacerbation : will dc him on 5 day of steroids # h/o CAD: f/u with his chief marketing officer continue Plavix #FERNIE on CKD:base line 2.1 , back to baseline #HTN urgency :resolved, cont. norvasc, Hydralazine dc patient home
[2019-10-12] MEDS: predniSONE 10 MG TABLET (UD) PO SCH (12:35)
--- NOTE | 2019-10-12 12:52 | PN ---
Physical Exam: SUBJECTIVE: Patient seen and examined at bedside. pt states he stills gets short of breath. OBJECTIVE: Vital Signs Period Temp Pulse Resp BP Sys/Denny Pulse Ox Last 24 Hr 97.7 F-97.9 F 61-72 20-20 127-155/69-78 97-97 GENERAL: The patient is awake, alert, and fully oriented, in no acute distress. HEAD: Normal with no signs of trauma. ENT:moist mucous membranes. NECK: Trachea midline, supple. LUNGS: Breath sounds equal, clear to auscultation bilaterally, no wheezes, no crackles, no accessory muscle use. HEART: Regular rate and rhythm, S1, S2 without murmur, rub or gallop. ABDOMEN: Soft, nontender, nondistended, normoactive bowel sounds, no guarding EXTREMITIES: 2+ pulses, warm, well-perfused, 2+ pitting edema b/l NEUROLOGICAL: Cranial nerves II through XII grossly intact. Normal speech, gait not observed. PSYCH: Normal mood, normal affect. SKIN: Warm, dry, normal turgor, no rashes or lesions noted Laboratory Last Values WBC 7.3 K/mm3 (4.0-10.0) 10/11/19 07:20 RBC 3.37 M/mm3 (4.00-5.60) L 10/11/19 07:20 Hgb 10.2 GM/dL (11.7-16.9) L 10/11/19 07:20 Hct 30.5 % (35.4-49) L 10/11/19 07:20 MCV 90.3 fl (80-96) 10/11/19 07:20 MCH 30.3 pg (25.7-33.7) 10/11/19 07:20 MCHC 33.5 g/dl (32.0-35.9) 10/11/19 07:20 RDW 14.1 % (11.9-15.9) 10/11/19 07:20 Plt Count 189 K/MM3 (134-434) 10/11/19 07:20 MPV 8.2 fl (7.5-11.1) 10/11/19 07:20 Absolute Neuts (auto) 6.2 K/mm3 (1.5-8.0) 10/11/19 07:20 Neutrophils % 84.9 % (42.8-82.8) H 10/11/19 07:20 Lymphocytes % 11.0 % (8-40) 10/11/19 07:20 Monocytes % 4.1 % (3.8-10.2) 10/11/19 07:20 Eosinophils % 0.0 % (0-4.5) D 10/11/19 07:20 Basophils % 0.0 % (0-2.0) 10/11/19 07:20 Nucleated RBC % 0 % (0-0) 10/11/19 07:20 Sodium 136 mmol/L (136-145) 10/12/19 08:05 Potassium 4.6 mmol/L (3.5-5.1) 10/12/19 08:05 Chloride 107 mmol/L (98-107) 10/12/19 08:05 Carbon Dioxide 21 mmol/L (21-32) 10/12/19 08:05 Anion Gap 7 MMOL/L (8-16) L 10/12/19 08:05 BUN 47.9 mg/dL (7-18) H 10/12/19 08:05 Creatinine 2.3 mg/dL (0.55-1.3) H 10/12/19 08:05 Est GFR (CKD-EPI)AfAm 28.53 10/12/19 08:05 Est GFR (CKD-EPI)NonAf 24.61 10/12/19 08:05 POC Glucometer 132 UNITS (80-120) 10/12/19 11:58 Random Glucose 108 mg/dL (74-106) H 10/12/19 08:05 Serum Osmolality 291 mosm/kg (278-305) 10/10/19 02:16 Calcium 8.6 mg/dL (8.5-10.1) 10/12/19 08:05 Phosphorus 3.4 mg/dL (2.5-4.9) 10/12/19 08:05 Magnesium 2.4 mg/dL (1.8-2.4) 10/12/19 08:05 Total Bilirubin 0.6 mg/dL (0.2-1) 10/12/19 08:05 AST 33 U/L (15-37) 10/12/19 08:05 ALT 41 U/L (13-61) 10/12/19 08:05 Alkaline Phosphatase 91 U/L (45-117) 10/12/19 08:05 Creatine Kinase 208 U/L (26-308) 10/10/19 02:10 Creatine Kinase Index 2.0 % (0.0-5.0) 10/10/19 02:10 CK-MB (CK-2) 4.3 ng/mL (0.5-3.6) H 10/10/19 02:10 Troponin I < 0.02 ng/ml (0.00-0.05) 10/10/19 02:10 Total Protein 5.6 g/dl (6.4-8.2) L 10/12/19 08:05 Albumin 3.0 g/dl (3.4-5.0) L 10/12/19 08:05 TSH 1.71 uIU/ml (0.358-3.74) 10/11/19 07:20 Free T4 0.90 ng/dl (0.76-1.16) 10/11/19 07:20 Free T3 1.4 pg/ml (2.0-4.4) L 10/11/19 07:20 Urine Color Yellow 10/10/19 04:20 Urine Appearance Clear 10/10/19 04:20 Urine pH 5.5 (5.0-8.0) 10/10/19 04:20 Ur Specific [place] 1.022 (1.010-1.035) 10/10/19 04:20 Urine Protein 4+ (NEGATIVE) H 10/10/19 04:20 Urine Glucose (UA) Negative (NEGATIVE) 10/10/19 04:20 Urine Ketones Trace (NEGATIVE) H 10/10/19 04:20 Urine Blood 1+ (NEGATIVE) H 10/10/19 04:20 Urine Nitrite Negative (NEGATIVE) 10/10/19 04:20 Urine Bilirubin Negative (NEGATIVE) 10/10/19 04:20 Urine Urobilinogen 1.0 mg/dL (0.2-1.0) 10/10/19 04:20 Ur Leukocyte Esterase Negative (NEGATIVE) 10/10/19 04:20 Urine WBC (Auto) 1 /hpf (0-5) 10/10/19 04:20 Urine RBC (Auto) 3 /hpf (0-4) 10/10/19 04:20 Urine Casts (Auto) 12 /lpf (0-8) 10/10/19 04:20 U Epithel Cells (Auto) 2.4 /HPF (0-5/HPF) 10/10/19 04:20 Urine Bacteria (Auto) 3.3 /hpf (NEGATIVE) 10/10/19 04:20 Urine Osmolality 479 mosm/kg (300-900) 10/10/19 22:42 Ur Random Creatinine 128.0 mg/dL (30-150) 10/10/19 22:43 U Random Total Protein 609.0 mg/dL (0-11.9) H 10/10/19 22:42 Ur Random Sodium 12 MMOL/L (40-220) L 10/10/19 22:43 Ur Random Potassium 52.0 MMOL/L (25-125) 10/10/19 22:43 Ur Random Chloride < 11 MMOL/L (110-250) L 10/10/19 22:43 Ur Random Urea Nitrogn 790 mg/dL (350-1000) 10/10/19 22:43 Urine Creatinine 126.0 mg/dL (30-150) 10/10/19 22:42 Protein/Creatinin Ratio 4.8 mg/dL 10/10/19 22:42 Current Medications Albuterol Sulfate (Ventolin 0.083% Nebulizer Soln -) 1 amp NEB Q4H PRN PRN Reason: SHORT OF BREATH/WHEEZING Albuterol/Ipratropium (Duoneb -) 1 amp NEB RQID [facility] Last Admin: 10/12/19 11:30 Dose: Not Given Amlodipine Besylate (Norvasc -) 10 mg PO DAILY [facility] Last Admin: 10/12/19 09:38 Dose: 10 mg Atorvastatin Calcium (Lipitor -) 40 mg PO HS [facility] Last Admin: 10/11/19 21:45 Dose: 40 mg Clopidogrel Bisulfate (Plavix -) 75 mg PO DAILY [facility] Last Admin: 10/12/19 09:39 Dose: 75 mg Heparin Sodium (Porcine) (Heparin -) 5,000 unit SQ Q8H-IV [facility] Last Admin: 10/12/19 09:39 Dose: 5,000 unit Hydralazine HCl (Apresoline -) 25 mg PO BID [facility] Last Admin: 10/12/19 09:38 Dose: 25 mg Insulin Aspart (Novolog Vial Sliding Scale -) 1 vial SQ [facility]; Protocol Last Admin: 10/12/19 12:00 Dose: Not Given Prednisone (Deltasone -) 30 mg PO DAILY [facility] Last Admin: 10/12/19 12:35 Dose: 30 mg Tamsulosin HCl (Flomax -) 0.4 mg PO DAILY@0830 [facility] Last Admin: 10/12/19 09:38 Dose: 0.4 mg ASSESSMENT/PLAN: 89 yo M PMH of DM, CKD , CAD , HTN, BIBEMS for unresponsiveness associated with a hypoglycemic episode. on arrival to [facility] , BGM improved following D10 admin . pt found to have acute sob worsening x 2 weeks. pt also been having poor PO intake Hypoglycemia - likely 2/2 poor po intake while on glimeperide and new impaired renal fxn, BGM now improved - hold glimeperide, c/w ISS and BGM - will reconsider glimepiride dose at [place] with recommendations for close f/u with PMD Acute respiratory failure likely 2/2 Acute COPD exacerbation -c/w prednisone taper - c/w duonebs, ventolin - pt still very rhonchorous on exam. will check CXR. 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 EF WNL - should f/u with his retail coverage merchandiser lead outpt CKD - has baseline Cr of 2.1, Cr now at 2.3. - DC fluids. HTN urgency - now resolved -c/w norvasc and hydralazine - continue to monitor Dispo: med/surg. ATTENDING PHYSICIAN STATEMENT I saw and evaluated the patient. I reviewed the resident's note and discussed the case with the resident. I agree with the resident's findings and plan as documented. SUBJECTIVE: OBJECTIVE: ASSESSMENT AND PLAN:
[2019-10-12] MEDS ORDERED: FUROSEMIDE 40 MG/4 ML INJECTABLE VIAL IVPUSH ONE (13:46)
[2019-10-12] MEDS ORDERED: LABETALOL HCL 100 MG TABLET (FP) PO SCH (15:00)
--- NOTE | 2019-10-12 16:34 | DS ---
Physical Exam: SUBJECTIVE: Patient seen and examined at bedside. pt states he stills gets short of breath. but improved from admission. OBJECTIVE: Vital Signs Period Temp Pulse Resp BP Sys/Denny Pulse Ox Last 24 Hr 97.7 F-97.9 F 61-72 20-20 127-155/69-78 97-97 GENERAL: The patient is awake, alert, and fully oriented, in no acute distress. HEAD: Normal with no signs of trauma. ENT:moist mucous membranes. NECK: Trachea midline, supple. LUNGS: Breath sounds equal, clear to auscultation bilaterally, no wheezes, no crackles, no accessory muscle use. HEART: Regular rate and rhythm, S1, S2 without murmur, rub or gallop. ABDOMEN: Soft, nontender, nondistended, normoactive bowel sounds, no guarding EXTREMITIES: 2+ pulses, warm, well-perfused, 2+ pitting edema b/l NEUROLOGICAL: Cranial nerves II through XII grossly intact. Normal speech, gait not observed. PSYCH: Normal mood, normal affect. SKIN: Warm, dry, normal turgor, no rashes or lesions noted Laboratory Last Values WBC 7.3 K/mm3 (4.0-10.0) 10/11/19 07:20 RBC 3.37 M/mm3 (4.00-5.60) L 10/11/19 07:20 Hgb 10.2 GM/dL (11.7-16.9) L 10/11/19 07:20 Hct 30.5 % (35.4-49) L 10/11/19 07:20 MCV 90.3 fl (80-96) 10/11/19 07:20 MCH 30.3 pg (25.7-33.7) 10/11/19 07:20 MCHC 33.5 g/dl (32.0-35.9) 10/11/19 07:20 RDW 14.1 % (11.9-15.9) 10/11/19 07:20 Plt Count 189 K/MM3 (134-434) 10/11/19 07:20 MPV 8.2 fl (7.5-11.1) 10/11/19 07:20 Absolute Neuts (auto) 6.2 K/mm3 (1.5-8.0) 10/11/19 07:20 Neutrophils % 84.9 % (42.8-82.8) H 10/11/19 07:20 Lymphocytes % 11.0 % (8-40) 10/11/19 07:20 Monocytes % 4.1 % (3.8-10.2) 10/11/19 07:20 Eosinophils % 0.0 % (0-4.5) D 10/11/19 07:20 Basophils % 0.0 % (0-2.0) 10/11/19 07:20 Nucleated RBC % 0 % (0-0) 10/11/19 07:20 Sodium 136 mmol/L (136-145) 10/12/19 08:05 Potassium 4.6 mmol/L (3.5-5.1) 10/12/19 08:05 Chloride 107 mmol/L (98-107) 10/12/19 08:05 Carbon Dioxide 21 mmol/L (21-32) 10/12/19 08:05 Anion Gap 7 MMOL/L (8-16) L 10/12/19 08:05 BUN 47.9 mg/dL (7-18) H 10/12/19 08:05 Creatinine 2.3 mg/dL (0.55-1.3) H 10/12/19 08:05 Est GFR (CKD-EPI)AfAm 28.53 10/12/19 08:05 Est GFR (CKD-EPI)NonAf 24.61 10/12/19 08:05 POC Glucometer 132 UNITS (80-120) 10/12/19 11:58 Random Glucose 108 mg/dL (74-106) H 10/12/19 08:05 Serum Osmolality 291 mosm/kg (278-305) 10/10/19 02:16 Calcium 8.6 mg/dL (8.5-10.1) 10/12/19 08:05 Phosphorus 3.4 mg/dL (2.5-4.9) 10/12/19 08:05 Magnesium 2.4 mg/dL (1.8-2.4) 10/12/19 08:05 Total Bilirubin 0.6 mg/dL (0.2-1) 10/12/19 08:05 AST 33 U/L (15-37) 10/12/19 08:05 ALT 41 U/L (13-61) 10/12/19 08:05 Alkaline Phosphatase 91 U/L (45-117) 10/12/19 08:05 Creatine Kinase 208 U/L (26-308) 10/10/19 02:10 Creatine Kinase Index 2.0 % (0.0-5.0) 10/10/19 02:10 CK-MB (CK-2) 4.3 ng/mL (0.5-3.6) H 10/10/19 02:10 Troponin I < 0.02 ng/ml (0.00-0.05) 10/10/19 02:10 Total Protein 5.6 g/dl (6.4-8.2) L 10/12/19 08:05 Albumin 3.0 g/dl (3.4-5.0) L 10/12/19 08:05 TSH 1.71 uIU/ml (0.358-3.74) 10/11/19 07:20 Free T4 0.90 ng/dl (0.76-1.16) 10/11/19 07:20 Free T3 1.4 pg/ml (2.0-4.4) L 10/11/19 07:20 Urine Color Yellow 10/10/19 04:20 Urine Appearance Clear 10/10/19 04:20 Urine pH 5.5 (5.0-8.0) 10/10/19 04:20 Ur Specific [place] 1.022 (1.010-1.035) 10/10/19 04:20 Urine Protein 4+ (NEGATIVE) H 10/10/19 04:20 Urine Glucose (UA) Negative (NEGATIVE) 10/10/19 04:20 Urine Ketones Trace (NEGATIVE) H 10/10/19 04:20 Urine Blood 1+ (NEGATIVE) H 10/10/19 04:20 Urine Nitrite Negative (NEGATIVE) 10/10/19 04:20 Urine Bilirubin Negative (NEGATIVE) 10/10/19 04:20 Urine Urobilinogen 1.0 mg/dL (0.2-1.0) 10/10/19 04:20 Ur Leukocyte Esterase Negative (NEGATIVE) 10/10/19 04:20 Urine WBC (Auto) 1 /hpf (0-5) 10/10/19 04:20 Urine RBC (Auto) 3 /hpf (0-4) 10/10/19 04:20 Urine Casts (Auto) 12 /lpf (0-8) 10/10/19 04:20 U Epithel Cells (Auto) 2.4 /HPF (0-5/HPF) 10/10/19 04:20 Urine Bacteria (Auto) 3.3 /hpf (NEGATIVE) 10/10/19 04:20 Urine Osmolality 479 mosm/kg (300-900) 10/10/19 22:42 Ur Random Creatinine 128.0 mg/dL (30-150) 10/10/19 22:43 U Random Total Protein 609.0 mg/dL (0-11.9) H 10/10/19 22:42 Ur Random Sodium 12 MMOL/L (40-220) L 10/10/19 22:43 Ur Random Potassium 52.0 MMOL/L (25-125) 10/10/19 22:43 Ur Random Chloride < 11 MMOL/L (110-250) L 10/10/19 22:43 Ur Random Urea Nitrogn 790 mg/dL (350-1000) 10/10/19 22:43 Urine Creatinine 126.0 mg/dL (30-150) 10/10/19 22:42 Protein/Creatinin Ratio 4.8 mg/dL 10/10/19 22:42 Current Medications Albuterol Sulfate (Ventolin 0.083% Nebulizer Soln -) 1 amp NEB Q4H PRN PRN Reason: SHORT OF BREATH/WHEEZING Albuterol/Ipratropium (Duoneb -) 1 amp NEB RQID [facility] Last Admin: 10/12/19 11:30 Dose: Not Given Amlodipine Besylate (Norvasc -) 10 mg PO DAILY [facility] Last Admin: 10/12/19 09:38 Dose: 10 mg Atorvastatin Calcium (Lipitor -) 40 mg PO HS [facility] Last Admin: 10/11/19 21:45 Dose: 40 mg Clopidogrel Bisulfate (Plavix -) 75 mg PO DAILY [facility] Last Admin: 10/12/19 09:39 Dose: 75 mg Heparin Sodium (Porcine) (Heparin -) 5,000 unit SQ Q8H-IV [facility] Last Admin: 10/12/19 09:39 Dose: 5,000 unit Hydralazine HCl (Apresoline -) 25 mg PO BID [facility] Last Admin: 10/12/19 09:38 Dose: 25 mg Insulin Aspart (Novolog Vial Sliding Scale -) 1 vial SQ ACHS [facility]; Protocol Last Admin: 10/12/19 12:00 Dose: Not Given Prednisone (Deltasone -) 30 mg PO DAILY [facility] Last Admin: 10/12/19 12:35 Dose: 30 mg Tamsulosin HCl (Flomax -) 0.4 mg PO DAILY@0830 [facility] Last Admin: 10/12/19 09:38 Dose: 0.4 mg Date of Admission:10/10/19 89 yo M PMH of DM, CKD , CAD , HTN, BIBEMS for unresponsiveness associated with a hypoglycemic episode. on arrival to [facility] , BGM improved following D10 admin . pt found to have acute sob worsening x 2 weeks. since the pt was hypoglycemic, the home glimepiride was held and pt had BGMs and ISS. On DC, pt should take a lower dose of glimepiride from 2 mg to 1 mg daily. Pt was managed on 30 mg Prednisone daily and should continue for 5 days. pt was getting duonebs prn and will be discharged with ventolin inhaler prn . CXR was done and reviewed with no significant pathology. Pt had an echo with a normal EF. 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 Pt was also found to have hypertensive episodes which are poorly controlled. pt was continued on norvasc and started on hydralazine 25 bid and labetalol 100 bid. Pt was told that he should take asa before his flight back to [facility] and that during the flight he should get up and walk around if safely possible. Date of Discharge: 10/12/19 Minutes to complete discharge: 36 Discharge Summary Problems reviewed: Yes Reason For Visit: EXACERB OF ASTHMA,UNRESPONSIVENESS,HYPOGLYCEMIA Current Active Problems Asthma exacerbation (Acute) Hypoglycemia (Acute) Unresponsive episode (Acute) Condition: Improved - Instructions Diet, Activity, Other Instructions: YOUR VISIT. You came to the hospital because your blood sugars were low and you were having difficulty breathing. You were admitted to the hospital for COPD exacerbation and your blood sugar abnormalities. You were treated with steroids and nebulizer treatments. while you were in the hospital, your kidney function was elevated so your losartan was discontinued and you were started on hydralazine and labetalol. You should consult your primary physicians regarding these changes. While here you were seen by the medicine physicians. You are now stable and may return home.Prior to your flight, you should take Aspirin 81mg (ecotrin 81mg) since you are on Plavix during the flight, please be sure to stand up and walk around when safe. MEDICATIONS. Please continue to take your medications as prescribed: Prednisone 30 mg for 5 days. Please continue to use your inhalers as prescribed Please continue to take your norvasc 10 mg once daily Please continue to take labetalol 100 twice a day Please continue to take hydralazine 25 mg twice a day We are decreasing your dose of glimepiride to 1 mg daily. Please do NOT take your lisinopril until you consult your primary care physician Please continue your additional home medications as prescribed. ADDITIONAL CARE. Please make an appointment to see your primary care provider,Dr. Renzo Rosales, 1 week from today. Please have a CBC and a Chemistry drawn at that time. Please make an appointment with your [employer] within 1 week to work up your COPD ADDITIONAL INFORMATION. Please call 911 or come directly to the emergency department if you experience unusual headache, vision change, shortness of breath, chest pain, numbness, tingling, loss of alertness/awareness, loss of function, unusual bleeding or any alarming symptoms. Referrals: ON STAFF,NOT [Primary Care Provider] - Disposition: HOME - Home Medications Comprehensive Discharge Medication List: Ambulatory Orders Amlodipine Besylate 10 mg PO DAILY 10/10/19 Atorvastatin Ca [Lipitor] 40 mg PO HS 10/10/19 Clopidogrel Bisulfate [Plavix -] 75 mg PO DAILY 10/10/19 Tamsulosin HCl 0.4 mg PO DAILY 10/10/19 Albuterol Sulfate Inhaler - [Ventolin HFA Inhaler -] 2 inh PO Q6H #1 inhaler 08/19 Glimepiride 1 mg PO DAILY #30 tablet 10/12/19 Labetalol HCl [Normodyne -] 100 mg PO BID 30 Days #60 tablet 10/12/19 Miscellaneous Medical Supply [Outpatient Order] 1 each ASDIR #1 misc hydrALAZINE HCL [Apresoline -] 25 mg PO BID 30 Days #60 tablet 10/12/19 predniSONE [Deltasone -] 30 mg PO DAILY 5 Days #5 tablet 10/12/19 This patient is new to me today: No Emergency Visit: No Critical Care patient: No - Discharge Referral [facility]erred to [facility] Med [facility] No ATTENDING PHYSICIAN STATEMENT I saw and evaluated the patient. I reviewed the resident's note and discussed the case with the resident. I agree with the resident's findings and plan as documented. SUBJECTIVE: OBJECTIVE: ASSESSMENT AND PLAN:
--- NOTE | 2019-10-12 16:57 | CONSULT ---
Admitting History and Physical - Smoking History Smoking history: Never smoked Have you smoked in the past 12 months: No - Alcohol/Substance Use Hx Alcohol Use: Yes (occasional) History - Admission Reason For Visit: EXACERB OF ASTHMA,UNRESPONSIVENESS,HYPOGLYCEMIA - Hearing Hearing: Normal Hearing Aide: No With Patient: No Speech Evaluation - Communication Primary Language: ANGOLAN Communication: Yes: Within Normal Limits Oral Expression Ability: Yes: No Impairment - Speech Production Apraxia: No Able to Make Needs Known: Yes: WNL Intelligibility: Yes: WNL - Speech Characteristics Voice Loudness: Normal Voice Pitch: Yes: Normal Voice Phonatory-based Quality: Yes: Normal Speech Pattern: Normal Nasal Resonance: Normal Articulation: Yes: Precise Rate of Speech: Intact Voice Comment: Vocal quality is functional for the environment with speech parameters WNL. - Language/Auditory Comprehension Follows: Yes: 1 Stage Simple Commands (WFL), 2 Stage Simple Commands (WFL) Observation: Able to respond to yes/no queries: Yes, Yes/No Confusion: No, Comprehends Conversational Speech: Yes, Benefits from Slow Speech: No, Benefits from Repetiton: No, Benefits from Increased Volume of Speech: No - Language/Verbal Expression Able to Respond to Simple Queries: Yes: WNL Able to Communicate Wants and Needs: Yes: WNL Functional Communication Status: Yes: WNL Aware of Errors: Yes Attempts to Correct Errors: Yes Use of Gestures: No Written Expression: not examined Oral Expression: WFL Reading Comprehension: not examined Calculations: not examined Attention: Yes: Intact - Memory/Perception halfway Memory: Yes: WNL Short Term Memory: Yes: WNL - Swallow Evaluation/Bedside Assessment Current Nutritional Intake: Regular, Thin Liquids Oral Secretions: Yes: WFL Tracheostomy Present: No Patient on Ventilator: No Dentition: Yes: Adequate Facial Symmetry at Rest: Symmetrical Facial Symmetry on Retraction: Symmetrical Facial Movement: Controlled Sensation: Normal Facial Comment: Oral and facial features are WFL for speech and swallowing Against Resistance Opening: Normal Against Resistance Closing: Normal Pucker Lips: Normal Smile: Normal Lips, Comment: WFL for speech and swallowing Lingual Movement: Normal Lingual Speed of Movement: Normal Lingual Movement Strgth Against Opposition: Normal Lingual Movement Characteristics: Normal Lingual Comment: WFL for speech and swallowing Soft Palate Description: Normal Color Hard Palate Description: Normal Color Gag Reflex: Strong Velopharyngeal Movement: Normal Laryngeal Elevation: WFL Laryngeal Movement: Able to Palpate Needs Assistance: No Rate of Intake: WFL Bolus Size: WFL Labial Seal: WFL Chewing: WFL Oral Prep Time: WFL A-P Transit: WFL Timing of Swallow: WFL Coughing/Throat Clear: No Change in Voice: No Other Findings/Remarks: Pt seen at bedside for swallow evla to r/o dysphagia. Pt is verbal, A&Ox3 cooperative. Vocal quality is impaired characterized as strained, strident, hoarsen, with reduced intensity and pitch. Volitional airway protection ( without bolus) and swallow is WNL. Hypothryriod elevation was present/strong to palpation of the anterior neck. Dental status is WFL. Current diet: regular solids with thin liquids Pt given PO trials of pureed, mechanical soft solids, regular cut to bite sized pieces without assistance revealed, adequate bolus formation and A P transport with a timely pharyngeal swallow (1-2 second average). No change in voicing or respiration after the swallow. Pt given PO trials of ice chips via spoon, thin liquids via cup and straw with total assistance revealed good acceptance, adequate labial containment / bolus control and, A P transport with a timely pharyngeal swallow (1-2 second average). No change in voicing or respiration after the swallow. Recommendations - Speech Evaluation, Impression/Plan Impression: The oral and pharyngeal swallow is adequate for po intake of regular solids and thin liquids. Labial containment, mastication, bolus transport, and initiation of swallow were WNL. No coughing or changes in voicing to suggest penetration / aspiration at bedside at this time. Speech and language are WNL Shoulder Pad Molder Goals: Tolerate the least restrictive solid and liquid consistencies without s/s of penetration / aspiration. Short Term Goals: Tolerate regular solids and thin liquid consistencies without s/s of penetration / aspiration. Recommended Frequency for Therapy: Follow Up PRN - Disposition Discharge to: To be Determined - Dysphagia Impressions/Plan Swallowing Skills: WFL Dysphagia Impressions: No Impairment Dysphagia Evaluation Summary: Continue current regular solids with thin liquids as tolerated. Medication to be given whole with water. Results given to supercharge repair supervisor verbally and to PCP via chart No futher speech interviention needed unless there is a change in medical status. - Recommendations Diet Consistency: Regular Medication Administration: Whole with water Liquids: Thin Liquids
[2019-10-12 20:05] VITALS: TEMP 98
[2019-10-12 20:59] VITALS: BP 157/68; PULSE 70
== END 2019-10-12 20:34 | disposition home or self-care (01) | DRG 638 ==
LOC: JER 23:35 → JERBED 10-10 06:00 → J8W 10-10 20:43
PROVIDERS: ADMIT Internal Medicine; ATTEND Internal Medicine
DX: E11.649 Type 2 diabetes mellitus with hypoglycemia without coma (principal); J45.901 Unspecified asthma with (acute) exacerbation; E87.1 Hypo-osmolality and hyponatremia; J44.1 Chronic obstructive pulmonary disease with (acute) exacerbation; F10.99 Alcohol use, unspecified with unspecified alcohol-induced disorder; N17.9 Acute kidney failure, unspecified; I13.10 Hypertensive heart and chronic kidney disease without heart failure, with stage 1 through stage 4 chronic kidney disease, or unspecified chronic kidney disease; N18.9 Chronic kidney disease, unspecified; H40.9 Unspecified glaucoma; Z87.891 Personal history of nicotine dependence; Z79.4 Long term (current) use of insulin
CPT/HCPCS: 36415; 70450-TC; 71045-TC-FY; 80048; 80053; 81003; 82043; 82436; 82550; 82553; 82565; 82570; 82962; 83735; 83930; 83935; 84100; 84133; 84156; 84300; 84439; 84443; 84481; 84484; 84540; 85025; 93005; 93010; 93306-TC; 94010; 94640; 97116-GP; 97161-GP; 99285-25; J1100; J1644; J7030